=== PATIENT | male | born 1985 | race Caucasian/White ===

== ENCOUNTER 2017-04-13 22:51 | Inpatient (IN) | payer SELFPAY ==
[~2017-04-13] VITALS: Ht 172.7 cm; Wt 111.1 kg
[2017-04-13] MEDS ORDERED: DIPHTH,PERTUSS(ACELL),TET TOX 0.5 ML DISP.SYRIN. VAX IM ONE (23:50)
[2017-04-13] MEDS ORDERED: MORPHINE SULFATE 4 MG/ML DISP.SYRIN. IV ONE (23:50)
--- NOTE | 2017-04-13 23:57 | PHYS DOC ---
Past Medical History Past Medical History: No Pertinent History Past Surgical History: Other Additional Past Surgical Histo: L HAND Alcohol Use: Occasionally Drug Use: None Adult General Chief Complaint Chief Complaint: WOUND CHECK HPI HPI Patient is a 31 year old male presents emergency department stating that he has been area his right foot that is red swollen and very tender to touch. He also has an area that appears to be a half a dollar size that is black. No drainage or discharge coming from the site. Patient has good sensation to the toes. He does have swelling in the foot up to the ankle. Sensation is unsure when his last tetanus immunization occurred. Review of Systems Review of Systems Constitutional: Denies fever or chills [] Eyes: Denies change in visual acuity, redness, or eye pain [] HENT: Denies nasal congestion or sore throat [] Respiratory: Denies cough or shortness of breath [] Cardiovascular: No additional information not addressed in HPI [] GI: Denies abdominal pain, nausea, vomiting, bloody stools or diarrhea [] : Denies dysuria or hematuria [] Musculoskeletal: Denies back pain or joint pain [] Integument: Denies rash or skin lesions. Swelling, tenderness to the right foot Neurologic: Denies headache, focal weakness or sensory changes [] Endocrine: Denies polyuria or polydipsia [] Current Medications Current Medications Current Medications Medications (Trade) Dose Ordered Sig/Sara Start Time Stop Time Status Last Admin Dose Admin Diphtheria/ Tetanus/Acell Pertussis (Boostrix) 0.5 ml ONCE ONCE 04/13/17 23:50 04/13/17 23:51 DC Morphine Sulfate 4 mg 1X ONCE 04/13/17 23:50 04/13/17 23:51 DC Allergies Allergies Allergies Coded Allergies Type Severity Reaction Last Updated Verified codeine Allergy Intermediate Swelling 04/13/17 Yes Physical Exam Physical Exam Constitutional: Well developed, well nourished, no acute distress, non-toxic appearance. [] HENT: Normocephalic, atraumatic, bilateral external ears normal, oropharynx moist, no oral exudates, nose normal. [] Eyes: PERRLA, EOMI, conjunctiva normal, no discharge. [] Neck: Normal range of motion, no tenderness, supple, no stridor. [] Cardiovascular:Heart rate regular rhythm, no murmur [] Lungs & Thorax: Bilateral breath sounds clear to auscultation [] Skin: Warm, dry, no erythema, no rash. Patient with redness, swelling to the right foot with half dollar size black area. No drainage or discharge noted. Swelling and redness noted to the ankle Back: No tenderness Extremities: No tenderness, no cyanosis, no clubbing, ROM intact, no edema. [] Neurologic: Alert and oriented X 3, normal motor function, normal sensory function, no focal deficits noted. [] Psychologic: Affect normal, judgement normal, mood normal. [] Current Patient Data Vital Signs Vital Signs Date Time Temp Pulse Resp B/P (MAP) Pulse Ox O2 Delivery O2 Flow Rate FiO2 04/13/17 23:30 98.3 121 20 96 Room Air 98.3 EKG EKG [] Radiology/Procedures Radiology/Procedures [] Course & Med Decision Making Course & Med Decision Making Pertinent Labs and Imaging studies reviewed. (See chart for details) Patient will be admitted into the hospital for cellulitis in the right lower foot. Spoke with Dr. Pinto of agrees with admission. Patient be placed on clindamycin. Patient will be nothing by mouth after midnight for surgery consult. Patient will be updated with a tetanus immunization here in the emergency department. He'll be provided with pain medication. Pending at this time. Patient is aware of admission as an observation status and agrees with plan of treatment. [] Dragon Disclaimer Dragon Disclaimer This electronic medical record was generated, in whole or in part, using a voice recognition dictation system. Departure Departure Impression: Primary Impression: Cellulitis of right foot Disposition: ADMITTED INPATIENT Admitting Physician: Ama Emmanuel Condition: STABLE Referrals: NO PCP (PCP) TAWANDA SCOTT [employer]ICER April 13, 2017 23:57
[2017-04-14] VITALS (7 sets, daily range): BP systolic 98–134; BP diastolic 54–80
[2017-04-14 00:26] LABS: BASO # 0.1 x10^3/uL (0.0-0.2); BASO % 0 % (0-3); EOS % 1 % (0-3); HEMATOCRIT 42.6 % (39.0-53.0); LYMPH # 1.6 x10^3/uL (1.0-4.8); LYMPH % 6 % (24-48); MEAN CORPUSCULAR HEMOGLOBIN 29 pg (25-35); MEAN CORPUSCULAR HGB CONC 33 g/dL (31-37); MEAN CORPUSCULAR VOLUME 87 fL (79-100); MONO % 9 % (0-9); NEUT % 85 % (31-73); PLATELET COUNT 276 x10^3/uL (140-400); RED BLOOD COUNT 4.91 x10^6/uL (4.30-5.70); RED CELL DISTRIBUTION WIDTH 14.4 % (11.5-14.5); WHITE BLOOD COUNT 27.1 x10^3/uL (4.0-11.0)
[2017-04-14 00:37] LABS: CALCIUM 8.8 mg/dL (8.5-10.1); GFR 86.6; POTASSIUM 3.6 mmol/L (3.5-5.1)
[2017-04-14 00:42] LABS: ALBUMIN 3.2 g/dL (3.4-5.0); ALBUMIN/GLOBULIN RATIO 0.8 (1.0-1.7); TOTAL BILIRUBIN 0.4 mg/dL (0.2-1.0); TOTAL PROTEIN 7.1 g/dL (6.4-8.2)
[2017-04-14 00:50] LABS: % EOS 1 % (0-5); PLT ESTIMATE ADEQUATE (ADEQUATE); TOXIC GRANULATION SLIGHT
[2017-04-14 04:50] LABS: BARBITURATES NEG (NEG); BENZODIAZEPINES NEG (NEG); CANNABINOIDS NEG (NEG); COCAINE NEG (NEG); METHADONE NEG (NEG); OPIATES POS (NEG); PHENCYCLIDINE NEG (NEG)
[2017-04-14] MEDS: oxyCODONE/APAP 5/325 1 TAB TABLET PO PRN ×3 (08:09→20:31)
[2017-04-14] MEDS: NICOTINE 21MG PATCH. TD PRN (08:09)
[2017-04-14] MEDS ORDERED: CLINDAMYCIN 900MG PREMIX 50 ML IV ONE (08:45)
--- NOTE | 2017-04-14 08:59 | PDOC1 ---
History and Physical Date of Admission Date of Admission DATE: 04/14/17 TIME: 08:48 Identification/Chief Complaint Chief Complaint foot pain, skin lesion Problems: Source Source: Chart review, Patient History of Present Illness History of Present Illness right foot pain worsening over two days, he had some abrasion on that area of the foot for some time, and has some area of the contralateral foot. Patient came to the ER when the pain was unbearable. and he felt he could not walk. 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, had had recent URI symptoms and has taken sudafed, he reports no meth use Past Medical History Cardiovascular: No pertinent hx Pulmonary: No pertinent hx GI: No pertinent hx Heme/Onc: No pertinent hx Hepatobiliary: No pertinent hx Psych: No pertinent hx Rheumatologic: No pertinent hx Infectious disease: No pertinent hx ENT: No pertinent hx Renal/: No pertinent hx Endocrine: No pertinent hx Dermatology: No pertinent hx Past Surgical History Past Surgical History: No pertinent history Social History Smoke: 1 pack per day ALCOHOL: none Drugs: None (no METH, ) Current Medications Current Medications Current Medications Diphtheria/ Tetanus/Acell Pertussis (Boostrix) 0.5 ml ONCE ONCE VAX IM ; Start 04/13/17 at 23:50; Stop 04/13/17 at 23:51; Status DC Morphine Sulfate 4 mg 1X ONCE IV Last administered on 04/14/17 01:42; Start at 23:50; Stop 04/13/17 at 23:51; Status DC Nicotine (Nicoderm Cq 21mg) 1 patch PRN DAILY PRN TD SMOKING CESSATION Last administered on 04/14/17 08:09; Start 04/14/17 at 02:00 Oxycodone/ Acetaminophen (Percocet 5/325) 1 tab PRN Q6HRS PRN PO PAIN Last administered on 04/14/17 08:09; Start 04/14/17 at 02:00 Allergies Allergies: Coded Allergies: codeine (Verified Allergy, Intermediate, Swelling, 04/13/17) ROS General: No: Chills, Night Sweats, Fatigue, Malaise, Appetite, Other PSYCHOLOGICAL ROS: No: Anxiety, Behavioral Disorder, Concentration difficultie , Decreased libido, Depression, Disorientation, Hallucinations, Hostility, Irritablity, Memory difficulties, Mood Swings, Obsessive thoughts, Physical abuse, Sexual abuse, Sleep disturbances, Suicidal ideation, Other Eyes: No Blurry vision, No Decreased vision, No Double vision, No Dry eyes, No Excessive tearing, No Eye Pain, No Itchy Eyes, No Loss of vision, No Photophobia , No Scotomata, No Uses contacts, No Uses glasses, No Other HEENT: No: Heacaches, Visual Changes, Hearing change, Nasal congestion, Nasal discharge, Oral lesions, Sinus pain, Sore Throat, Epistaxis, Sneezing, Snoring, Tinnitus, Vertigo, Vocal changes, Other Respiratory: No: Cough, Hemoptysis, Orthopnea, Pleuritic Pain, Shortness of breath, SOB with excertion, Sputum Changes, Stridor, Tachypnea, Wheezing, Other Cardiovascular: No Chest Pain, No Palpitations, No Orthopnea, No Paroxysmal Noc. Dyspnea, No Edema, No Lt Headedness, No Other Gastrointestinal: No Nausea, No Vomiting, No Abdominal Pain, No Diarrhea, No Constipation, No Melena, No Hematochezia, No Other Genitourinary: No Dysuria, No Frequency, No Incontinence, No Hematuria, No Retention, No Discharge, No Urgency, No Pain, No Flank Pain, No Other, No , No , No , No , No , No , No Musculoskeletal: Yes Pain In: (foot), No Gait Disturbance, No Joint Pain, No Joint Stiffness, No Joint Swelling, No Muscle Pain, No Muscular Weakness, No Swelling In:, No Other Neurological: No Behavorial Changes, No Bowel/Bladder ControlChng, No Confusion , No Dizziness, No Gait Disturbance, No Headaches, No Impaired Coord/balance, No Memory Loss, No Numbness/Tingling, No Seizures, No Speech Problems, No Tremors, No Visual Changes, No Weakness, No Other Skin: Yes Dry Skin, Yes Rash, Yes Other (scale on same area of contralateral foot), No Eczema, No Hair Changes, No Lumps, No Mole Changes, No Mottling, No Nail Changes, No Pruritus, No Skin Lesion Changes, No Acne Physical Exam General: Alert, Oriented X3, Cooperative, No acute distress HEENT: Atraumatic, PERRLA Lungs: Clear to auscultation, Normal air movement Abdomen: Normal bowel sounds, Soft, No tenderness Rectal Exam: not examined Extremities: No clubbing, No cyanosis, Normal pulses Skin: No rashes, No breakdown, Other Neuro: Normal speech, Normal tone, Sensation intact Psych/Mental Status: Mood NL Vitals Vitals Vital Signs Date Time Temp Pulse Resp B/P (MAP) Pulse Ox O2 Delivery O2 Flow Rate FiO2 04/14/17 08:09 16 Room Air 04/14/17 07:00 97.7 96 102/64 (77) 100 97.7 Labs Labs Laboratory Tests Test 04/14/17 00:18 04/14/17 03:10 White Blood Count 27.1 x10^3/uL (4.0-11.0) Red Blood Count 4.91 x10^6/uL (4.30-5.70) Hemoglobin 14.0 g/dL (13.0-17.5) Hematocrit 42.6 % (39.0-53.0) Mean Corpuscular Volume 87 fL (79-100) Mean Corpuscular Hemoglobin 29 pg (25-35) Mean Corpuscular Hemoglobin Concent 33 g/dL (31-37) Red Cell Distribution Width 14.4 % (11.5-14.5) Platelet Count 276 x10^3/uL (140-400) Neutrophils (%) (Auto) 85 % (31-73) Lymphocytes (%) (Auto) 6 % (24-48) Monocytes (%) (Auto) 9 % (0-9) Eosinophils (%) (Auto) 1 % (0-3) Basophils (%) (Auto) 0 % (0-3) Neutrophils # (Auto) 22.9 x10^3uL (1.8-7.7) Lymphocytes # (Auto) 1.6 x10^3/uL (1.0-4.8) Monocytes # (Auto) 2.4 x10^3/uL (0.0-1.1) Eosinophils # (Auto) 0.2 x10^3/uL (0.0-0.7) Basophils # (Auto) 0.1 x10^3/uL (0.0-0.2) Segmented Neutrophils % 82 % (35-66) Lymphocytes % 9 % (24-48) Monocytes % 8 % (0-10) Eosinophils % 1 % (0-5) Toxic Granulation Slight Platelet Estimate Adequate (ADEQUATE) Sodium Level 134 mmol/L (136-145) Potassium Level 3.6 mmol/L (3.5-5.1) Chloride Level 100 mmol/L (98-107) Carbon Dioxide Level 23 mmol/L (21-32) Anion Gap 11 (6-14) Blood Urea Nitrogen 7 mg/dL (8-26) Creatinine 1.0 mg/dL (0.7-1.3) Estimated GFR (Cockcroft-Gault) 86.6 BUN/Creatinine Ratio 7 (6-20) Glucose Level 171 mg/dL (70-99) Calcium Level 8.8 mg/dL (8.5-10.1) Total Bilirubin 0.4 mg/dL (0.2-1.0) Aspartate Amino Transf (AST/SGOT) 23 U/L (15-37) Alanine Aminotransferase (ALT/SGPT) 48 U/L (16-63) Alkaline Phosphatase 87 U/L (46-116) Total Protein 7.1 g/dL (6.4-8.2) Albumin 3.2 g/dL (3.4-5.0) Albumin/Globulin Ratio 0.8 (1.0-1.7) Urine Opiates Screen Pos (NEG) Urine Methadone Screen Neg (NEG) Urine Barbiturates Neg (NEG) Urine Phencyclidine Screen Neg (NEG) Urine Amphetamine/Methamphetamine Pos (NEG) Urine Benzodiazepines Screen Neg (NEG) Urine Cocaine Screen Neg (NEG) Urine Cannabinoids Screen Neg (NEG) Urine Ethyl Alcohol Neg (NEG) Laboratory Tests Test 04/14/17 00:18 04/14/17 03:10 White Blood Count 27.1 x10^3/uL (4.0-11.0) Red Blood Count 4.91 x10^6/uL (4.30-5.70) Hemoglobin 14.0 g/dL (13.0-17.5) Hematocrit 42.6 % (39.0-53.0) Mean Corpuscular Volume 87 fL (79-100) Mean Corpuscular Hemoglobin 29 pg (25-35) Mean Corpuscular Hemoglobin Concent 33 g/dL (31-37) Red Cell Distribution Width 14.4 % (11.5-14.5) Platelet Count 276 x10^3/uL (140-400) Neutrophils (%) (Auto) 85 % (31-73) Lymphocytes (%) (Auto) 6 % (24-48) Monocytes (%) (Auto) 9 % (0-9) Eosinophils (%) (Auto) 1 % (0-3) Basophils (%) (Auto) 0 % (0-3) Neutrophils # (Auto) 22.9 x10^3uL (1.8-7.7) Lymphocytes # (Auto) 1.6 x10^3/uL (1.0-4.8) Monocytes # (Auto) 2.4 x10^3/uL (0.0-1.1) Eosinophils # (Auto) 0.2 x10^3/uL (0.0-0.7) Basophils # (Auto) 0.1 x10^3/uL (0.0-0.2) Segmented Neutrophils % 82 % (35-66) Lymphocytes % 9 % (24-48) Monocytes % 8 % (0-10) Eosinophils % 1 % (0-5) Toxic Granulation Slight Platelet Estimate Adequate (ADEQUATE) Sodium Level 134 mmol/L (136-145) Potassium Level 3.6 mmol/L (3.5-5.1) Chloride Level 100 mmol/L (98-107) Carbon Dioxide Level 23 mmol/L (21-32) Anion Gap 11 (6-14) Blood Urea Nitrogen 7 mg/dL (8-26) Creatinine 1.0 mg/dL (0.7-1.3) Estimated GFR (Cockcroft-Gault) 86.6 BUN/Creatinine Ratio 7 (6-20) Glucose Level 171 mg/dL (70-99) Calcium Level 8.8 mg/dL (8.5-10.1) Total Bilirubin 0.4 mg/dL (0.2-1.0) Aspartate Amino Transf (AST/SGOT) 23 U/L (15-37) Alanine Aminotransferase (ALT/SGPT) 48 U/L (16-63) Alkaline Phosphatase 87 U/L (46-116) Total Protein 7.1 g/dL (6.4-8.2) Albumin 3.2 g/dL (3.4-5.0) Albumin/Globulin Ratio 0.8 (1.0-1.7) Urine Opiates Screen Pos (NEG) Urine Methadone Screen Neg (NEG) Urine Barbiturates Neg (NEG) Urine Phencyclidine Screen Neg (NEG) Urine Amphetamine/Methamphetamine Pos (NEG) Urine Benzodiazepines Screen Neg (NEG) Urine Cocaine Screen Neg (NEG) Urine Cannabinoids Screen Neg (NEG) Urine Ethyl Alcohol Neg (NEG) VTE Prophylaxis Ordered VTE Prophylaxis Devices: No VTE Pharmacological Prophylaxi: Yes Assessment/Plan Assessment/Plan right foot cellulits with wound, bullous area withpossible underlying eschar, nearly black sepsis w/ Leukocytosis and tachycardia, bolus NS now, obesity tobaccoism IV clinda, consult ortho, would likely benefit from I+D KIMBERLEY GONSALES MD Apr 14, 2017 08:59
[2017-04-14] MEDS ORDERED: IV NORMAL SALINE 1000ML BAG 1,000 ML IV ONE ×2 (09:00)
[2017-04-14] MEDS ORDERED: NICOTINE POLACRILEX 2MG GUM PACKAGE of 12. BC PRN (09:00)
[2017-04-14] MEDS: CLINDAMYCIN 900MG PREMIX 50 ML IV SCH ×2 (14:25→20:31)
[2017-04-15 03:00] VITALS: BP 109/65
[2017-04-15] MEDS: CLINDAMYCIN 900MG PREMIX 50 ML IV SCH ×3 (05:32→20:32)
[2017-04-15 07:00] VITALS: BP 116/73
[2017-04-15 09:23] LABS: BASO # 0.1 x10^3/uL (0.0-0.2); BASO % 0 % (0-3); EOS % 3 % (0-3); HEMATOCRIT 40.3 % (39.0-53.0); HEMOGLOBIN 13.2 g/dL (13.0-17.5); LYMPH # 1.8 x10^3/uL (1.0-4.8); LYMPH % 13 % (24-48); MEAN CORPUSCULAR HEMOGLOBIN 29 pg (25-35); MEAN CORPUSCULAR HGB CONC 33 g/dL (31-37); MEAN CORPUSCULAR VOLUME 88 fL (79-100); MONO % 11 % (0-9); NEUT % 73 % (31-73); PLATELET COUNT 257 x10^3/uL (140-400); WHITE BLOOD COUNT 13.4 x10^3/uL (4.0-11.0)
[2017-04-15 09:38] LABS: ALBUMIN 2.6 g/dL (3.4-5.0); ALBUMIN/GLOBULIN RATIO 0.6 (1.0-1.7); CALCIUM 8.6 mg/dL (8.5-10.1); CREATININE 1.2 mg/dL (0.7-1.3); GFR 70.2; POTASSIUM 4.3 mmol/L (3.5-5.1); TOTAL BILIRUBIN 0.4 mg/dL (0.2-1.0); TOTAL PROTEIN 6.9 g/dL (6.4-8.2)
[2017-04-15 11:00] VITALS: BP 117/78
[2017-04-15] MEDS: oxyCODONE/APAP 5/325 1 TAB TABLET PO PRN ×2 (12:52→18:42)
[2017-04-15] MEDS: NICOTINE 21MG PATCH. TD PRN (12:52)
[2017-04-15 15:00] VITALS: BP 107/75
--- NOTE | 2017-04-15 17:00 | RAD ---
MR of the right foot without contrast HISTORY: Right dorsal foot pain and swelling. Open wound resembling a spider bite for 5 days, located at the dorsal aspect of the central mid foot TECHNIQUE: Routine multiplanar sequences are obtained through the foot, centered at the mid foot. FINDINGS: Diffuse soft tissue edema and swelling, particularly involving the dorsum of the foot and extending into the partially visualized toes. This also extends posteriorly to the ankle. No evidence of an organized or drainable fluid collection or abscess. No evidence of a bone lesion or an acute fracture. No aggressive bone destruction. No significant bone marrow edema. No evidence of periosteal reaction. The visualized tendons are intact. No significant tendon sheath fluid. IMPRESSION: 1. Soft tissue swelling along the dorsum of the foot compatible with cellulitis or soft tissue infection. No evidence of an organized abscess. 2. No evidence of acute osteomyelitis. Electronically signed by: Maximo Lee MD (04/15/2017 4:57 PM)
--- NOTE | 2017-04-15 17:33 | PDOC ---
PROGRESS NOTES Chief Complaint Chief Complaint Severe right foot cellulits with wound bullous area withpossible underlying eschar nearly black Sepsis w/ Leukocytosis and tachycardia obesity tobaccoism History of Present Illness History of Present Illness Pt resting with NAD DW RN DW case mgmt Vitals Vitals Vital Signs Date Time Temp Pulse Resp B/P (MAP) Pulse Ox O2 Delivery O2 Flow Rate FiO2 04/15/17 15:00 98.6 100 20 107/75 (86) 96 Room Air 98.6 Physical Exam General: Alert, Oriented X3, Cooperative, No acute distress Heart: Regular rate, Normal S1, Normal S2 Lungs: Clear Abdomen: Normal bowel sounds, Soft, No tenderness Extremities: No clubbing, No cyanosis, Normal pulses Skin: No rashes, No breakdown, Other Labs LABS Laboratory Tests Test 04/15/17 08:50 White Blood Count 13.4 x10^3/uL (4.0-11.0) Red Blood Count 4.60 x10^6/uL (4.30-5.70) Hemoglobin 13.2 g/dL (13.0-17.5) Hematocrit 40.3 % (39.0-53.0) Mean Corpuscular Volume 88 fL (79-100) Mean Corpuscular Hemoglobin 29 pg (25-35) Mean Corpuscular Hemoglobin Concent 33 g/dL (31-37) Red Cell Distribution Width 15.0 % (11.5-14.5) Platelet Count 257 x10^3/uL (140-400) Neutrophils (%) (Auto) 73 % (31-73) Lymphocytes (%) (Auto) 13 % (24-48) Monocytes (%) (Auto) 11 % (0-9) Eosinophils (%) (Auto) 3 % (0-3) Basophils (%) (Auto) 0 % (0-3) Neutrophils # (Auto) 9.8 x10^3uL (1.8-7.7) Lymphocytes # (Auto) 1.8 x10^3/uL (1.0-4.8) Monocytes # (Auto) 1.4 x10^3/uL (0.0-1.1) Eosinophils # (Auto) 0.4 x10^3/uL (0.0-0.7) Basophils # (Auto) 0.1 x10^3/uL (0.0-0.2) Sodium Level 141 mmol/L (136-145) Potassium Level 4.3 mmol/L (3.5-5.1) Chloride Level 105 mmol/L (98-107) Carbon Dioxide Level 28 mmol/L (21-32) Anion Gap 8 (6-14) Blood Urea Nitrogen 11 mg/dL (8-26) Creatinine 1.2 mg/dL (0.7-1.3) Estimated GFR (Cockcroft-Gault) 70.2 BUN/Creatinine Ratio 9 (6-20) Glucose Level 98 mg/dL (70-99) Calcium Level 8.6 mg/dL (8.5-10.1) Total Bilirubin 0.4 mg/dL (0.2-1.0) Aspartate Amino Transf (AST/SGOT) 19 U/L (15-37) Alanine Aminotransferase (ALT/SGPT) 38 U/L (16-63) Alkaline Phosphatase 77 U/L (46-116) Total Protein 6.9 g/dL (6.4-8.2) Albumin 2.6 g/dL (3.4-5.0) Albumin/Globulin Ratio 0.6 (1.0-1.7) Review of Systems Review of Systems co pain co weakness Assessment and Plan Assessmemt and Plan Severe right foot cellulits with wound bullous area withpossible underlying eschar nearly black Sepsis w/ Leukocytosis and tachycardia obesity tobaccoism Plan IV antibx wound care Ortho and gen surgery consult PTOT Home meds Problems: Comment Review of Relevant I have reviewed the following items pepito (where applicable) has been applied. Labs Laboratory Tests Test 04/14/17 00:18 04/14/17 01:20 04/14/17 03:10 04/15/17 08:50 White Blood Count 27.1 x10^3/uL (4.0-11.0) 13.4 x10^3/uL (4.0-11.0) Red Blood Count 4.91 x10^6/uL (4.30-5.70) 4.60 x10^6/uL (4.30-5.70) Hemoglobin 14.0 g/dL (13.0-17.5) 13.2 g/dL (13.0-17.5) Hematocrit 42.6 % (39.0-53.0) 40.3 % (39.0-53.0) Mean Corpuscular Volume 87 fL (79-100) 88 fL (79-100) Mean Corpuscular Hemoglobin 29 pg (25-35) 29 pg (25-35) Mean Corpuscular Hemoglobin Concent 33 g/dL (31-37) 33 g/dL (31-37) Red Cell Distribution Width 14.4 % (11.5-14.5) 15.0 % (11.5-14.5) Platelet Count 276 x10^3/uL (140-400) 257 x10^3/uL (140-400) Neutrophils (%) (Auto) 85 % (31-73) 73 % (31-73) Lymphocytes (%) (Auto) 6 % (24-48) 13 % (24-48) Monocytes (%) (Auto) 9 % (0-9) 11 % (0-9) Eosinophils (%) (Auto) 1 % (0-3) 3 % (0-3) Basophils (%) (Auto) 0 % (0-3) 0 % (0-3) Neutrophils # (Auto) 22.9 x10^3uL (1.8-7.7) 9.8 x10^3uL (1.8-7.7) Lymphocytes # (Auto) 1.6 x10^3/uL (1.0-4.8) 1.8 x10^3/uL (1.0-4.8) Monocytes # (Auto) 2.4 x10^3/uL (0.0-1.1) 1.4 x10^3/uL (0.0-1.1) Eosinophils # (Auto) 0.2 x10^3/uL (0.0-0.7) 0.4 x10^3/uL (0.0-0.7) Basophils # (Auto) 0.1 x10^3/uL (0.0-0.2) 0.1 x10^3/uL (0.0-0.2) Segmented Neutrophils % 82 % (35-66) Lymphocytes % 9 % (24-48) Monocytes % 8 % (0-10) Eosinophils % 1 % (0-5) Toxic Granulation Slight Platelet Estimate Adequate (ADEQUATE) Sodium Level 134 mmol/L (136-145) 141 mmol/L (136-145) Potassium Level 3.6 mmol/L (3.5-5.1) 4.3 mmol/L (3.5-5.1) Chloride Level 100 mmol/L (98-107) 105 mmol/L (98-107) Carbon Dioxide Level 23 mmol/L (21-32) 28 mmol/L (21-32) Anion Gap 11 (6-14) 8 (6-14) Blood Urea Nitrogen 7 mg/dL (8-26) 11 mg/dL (8-26) Creatinine 1.0 mg/dL (0.7-1.3) 1.2 mg/dL (0.7-1.3) Estimated GFR (Cockcroft-Gault) 86.6 70.2 BUN/Creatinine Ratio 7 (6-20) 9 (6-20) Glucose Level 171 mg/dL (70-99) 98 mg/dL (70-99) Calcium Level 8.8 mg/dL (8.5-10.1) 8.6 mg/dL (8.5-10.1) Total Bilirubin 0.4 mg/dL (0.2-1.0) 0.4 mg/dL (0.2-1.0) Aspartate Amino Transf (AST/SGOT) 23 U/L (15-37) 19 U/L (15-37) Alanine Aminotransferase (ALT/SGPT) 48 U/L (16-63) 38 U/L (16-63) Alkaline Phosphatase 87 U/L (46-116) 77 U/L (46-116) Total Protein 7.1 g/dL (6.4-8.2) 6.9 g/dL (6.4-8.2) Albumin 3.2 g/dL (3.4-5.0) 2.6 g/dL (3.4-5.0) Albumin/Globulin Ratio 0.8 (1.0-1.7) 0.6 (1.0-1.7) Nasal Screen MRSA (PCR) Negative (Negative) Urine Opiates Screen Pos (NEG) Urine Methadone Screen Neg (NEG) Urine Barbiturates Neg (NEG) Urine Phencyclidine Screen Neg (NEG) Urine Amphetamine/Methamphetamine Pos (NEG) Urine Benzodiazepines Screen Neg (NEG) Urine Cocaine Screen Neg (NEG) Urine Cannabinoids Screen Neg (NEG) Urine Ethyl Alcohol Neg (NEG) Laboratory Tests Test 04/15/17 08:50 White Blood Count 13.4 x10^3/uL (4.0-11.0) Red Blood Count 4.60 x10^6/uL (4.30-5.70) Hemoglobin 13.2 g/dL (13.0-17.5) Hematocrit 40.3 % (39.0-53.0) Mean Corpuscular Volume 88 fL (79-100) Mean Corpuscular Hemoglobin 29 pg (25-35) Mean Corpuscular Hemoglobin Concent 33 g/dL (31-37) Red Cell Distribution Width 15.0 % (11.5-14.5) Platelet Count 257 x10^3/uL (140-400) Neutrophils (%) (Auto) 73 % (31-73) Lymphocytes (%) (Auto) 13 % (24-48) Monocytes (%) (Auto) 11 % (0-9) Eosinophils (%) (Auto) 3 % (0-3) Basophils (%) (Auto) 0 % (0-3) Neutrophils # (Auto) 9.8 x10^3uL (1.8-7.7) Lymphocytes # (Auto) 1.8 x10^3/uL (1.0-4.8) Monocytes # (Auto) 1.4 x10^3/uL (0.0-1.1) Eosinophils # (Auto) 0.4 x10^3/uL (0.0-0.7) Basophils # (Auto) 0.1 x10^3/uL (0.0-0.2) Sodium Level 141 mmol/L (136-145) Potassium Level 4.3 mmol/L (3.5-5.1) Chloride Level 105 mmol/L (98-107) Carbon Dioxide Level 28 mmol/L (21-32) Anion Gap 8 (6-14) Blood Urea Nitrogen 11 mg/dL (8-26) Creatinine 1.2 mg/dL (0.7-1.3) Estimated GFR (Cockcroft-Gault) 70.2 BUN/Creatinine Ratio 9 (6-20) Glucose Level 98 mg/dL (70-99) Calcium Level 8.6 mg/dL (8.5-10.1) Total Bilirubin 0.4 mg/dL (0.2-1.0) Aspartate Amino Transf (AST/SGOT) 19 U/L (15-37) Alanine Aminotransferase (ALT/SGPT) 38 U/L (16-63) Alkaline Phosphatase 77 U/L (46-116) Total Protein 6.9 g/dL (6.4-8.2) Albumin 2.6 g/dL (3.4-5.0) Albumin/Globulin Ratio 0.6 (1.0-1.7) Microbiology 04/14/17 Blood Culture - Preliminary, Resulted NO GROWTH AFTER 1 DAY Medications Current Medications Diphtheria/ Tetanus/Acell Pertussis (Boostrix) 0.5 ml ONCE ONCE VAX IM ; Start 04/13/17 at 23:50; Stop 04/13/17 at 23:51; Status DC Morphine Sulfate 4 mg 1X ONCE IV Last administered on 04/14/17 01:42; Start at 23:50; Stop 04/13/17 at 23:51; Status DC Nicotine (Nicoderm Cq 21mg) 1 patch PRN DAILY PRN TD SMOKING CESSATION Last administered on 04/15/17 12:52; Start 04/14/17 at 02:00 Oxycodone/ Acetaminophen (Percocet 5/325) 1 tab PRN Q6HRS PRN PO PAIN Last administered on 04/15/17 12:52; Start 04/14/17 at 02:00 Clindamycin Phosphate 50 ml @ 100 mls/hr Q8HRS IV Last administered on 16:35; Start 04/14/17 at 14:00 Clindamycin Phosphate 50 ml @ 100 mls/hr 1X ONCE IV Last administered on 09:31; Start 04/14/17 at 08:45; Stop 04/14/17 at 09:14; Status DC Nicotine Polacrilex (Nicorette Gum) 1 each PRN Q1HR PRN BC SMOKING CESSATION; Start 04/14/17 at 09:00 Morphine Sulfate 4 mg PRN Q2HR PRN IV PAIN; Start 04/14/17 at 09:00 Sodium Chloride 1,000 ml @ 125 mls/hr 1X ONCE IV Last administered on 11:58; Start 04/14/17 at 09:00; Stop 04/14/17 at 16:59; Status DC Sodium Chloride 1,000 ml @ 1,000 mls/hr 1X ONCE IV Last administered on t 09:08; Start 04/14/17 at 09:00; Stop 04/14/17 at 09:59; Status DC Vitals/I & O Vital Sign - Last 24 Hours 04/14/17 04/14/17 04/14/17 04/14/17 19:00 19:56 20:31 21:31 Temp 97.6 97.6 Pulse 113 Resp 18 20 20 B/P (MAP) 114/74 (87) Pulse Ox 99 99 98 O2 Delivery Room Air Room Air Room Air 04/14/17 04/15/17 04/15/17 04/15/17 23:00 03:00 07:00 08:15 Temp 98.3 97.6 98.1 98.3 97.6 98.1 Pulse 121 95 117 Resp 18 24 20 B/P (MAP) 120/65 (83) 109/65 (80) 116/73 (87) Pulse Ox 98 100 99 O2 Delivery Room Air Room Air Room Air Room Air 04/15/17 04/15/17 04/15/17 04/15/17 11:00 12:52 13:55 15:00 Temp 97.5 98.6 97.5 98.6 Pulse 109 100 Resp 20 20 B/P (MAP) 117/78 (91) 107/75 (86) Pulse Ox 97 96 O2 Delivery Room Air Room Air Room Air Room Air Intake and Output 04/14/17 04/14/17 04/15/17 15:00 23:00 07:00 Intake Total 1100 ml 360 ml 0 ml Output Total 1435 ml 1550 ml Balance 1100 ml -1075 ml -1550 ml ELIZABETH NICOLAS III DO Apr 15, 2017 17:33
[2017-04-15 19:00] VITALS: BP 120/77
[2017-04-15] MEDS: MORPHINE SULFATE 4 MG/ML DISP.SYRIN. IV PRN (21:54)
[2017-04-15 23:00] VITALS: BP 120/76
--- NOTE | 2017-04-16 02:06 | CONS ---
DATE OF CONSULTATION: 04/15/2017 ORTHOPEDIC CONSULTATION REQUESTING PHYSICIAN: Dr. Ama mEmanuel. REASON FOR CONSULTATION: Right foot blister and infection. HISTORY OF PRESENT ILLNESS: The patient is a 31-year-old male who states that he had about a week history of increasing discomfort to his top of his right foot. He says he is unaware of any specific trauma to the area. It became progressively tender, swollen and then red. He developed a small area that seem to bubble up on the top of the foot and then got to be a bigger area of about a half dollar sized was black with surrounding redness in the area. The blister did not break or discharge. He has really had no fever or chills. The area might be a spider bite, but he is unaware of any specific trauma. He does have some swelling in the foot, tenderness around the area. There is some stiffness and pain with movement of the foot as well. PAST MEDICAL HISTORY: He has had surgery on his left hand before. ALLERGIES: CODEINE. MEDICATIONS: List is reviewed. FAMILY HISTORY: He denies any significant family history. SOCIAL HISTORY: He is a 1 pack per day smoker. Denies alcohol use. No use of nonprescription drugs. REVIEW OF SYSTEMS: He was given tetanus in the Emergency Department. Denies any fever, chills, focal weakness, numbness, tingling, visual changes any respiratory symptoms, cough or cold. No nausea, vomiting, diarrhea, really pain has isolated to the foot without any radiating pain, no difficulties with his gait other than pain in the foot, skin changes only with some scaly skin on the opposite foot. PHYSICAL EXAMINATION: GENERAL: He is afebrile. Vital signs are stable, alert and oriented x 3, cooperative, in no acute distress. EXTREMITIES: Examination of the lower extremities reveals about a 2 cm diameter round the area on the dorsum of the right foot that has appearance of a blood-filled blister surrounding redness and swelling of the entire foot. He has mild restriction on full range of motion of his ankle with no instability on the right side, full range of motion on the left. No evidence of ankle joint effusion. He can wiggle his toes, but does have tenderness with movement in the foot, normal examination of the contralateral foot and ankle. Bilateral hips and knees with overall intact motor function, distal pulses, sensation, reflexes, skin in both lower extremities throughout. IMPRESSION: Right foot cellulitis with blister of unknown, presumably atraumatic origin. TREATMENT PLAN: After verbal consent was obtained, I sterilely prepped the area of his right foot and unroofed the area of the blister, fluid inside appeared to be serosanguineous in nature and there was no evidence of deep tracking below the dermis. He certainly does have surrounding cellulitis around the area. The area was then dressed with Xeroform gauze, sterile dressings and an Merritt wrap. I told him that based on the appearance, I think really this appears to be just a superficial blister with some superficial irritation of the skin that would continue to just probably respond to antibiotics. Given the unusual onset of this and possibility of some other deep tissue involvement relating to this, I obtained an MRI to see whether if this could be possibly masking an abscess below the skin surface and require further surgical debridement ; however, the MRI was obtained later today after my consultation and indeed shows just cellulitis and no evidence of soft tissue abscess or any bony changes of deep infection or osteomyelitis. I therefore recommend ongoing nonoperative treatment with antibiotics and a superficial wound care of the foot. From my standpoint, he can weightbear on the foot. I think would be limited in terms of due to the ongoing tenderness and swelling. DAAM DOMINGO MD DR: BLADIMIR/crista JOB#: [id number] / [id number]
[2017-04-16 03:00] VITALS: BP 112/67
[2017-04-16] MEDS: oxyCODONE/APAP 5/325 1 TAB TABLET PO PRN ×3 (05:33→21:38)
[2017-04-16] MEDS: CLINDAMYCIN 900MG PREMIX 50 ML IV SCH ×3 (05:34→21:38)
[2017-04-16] MEDS ORDERED: CALCIUM CARBONATE 500 MG TAB.CHEW PO PRN (05:45)
[2017-04-16 07:00] VITALS: BP 122/77
[2017-04-16 10:40] VITALS: BP 119/75
--- NOTE | 2017-04-16 12:22 | PDOC ---
PROGRESS NOTES Chief Complaint Chief Complaint Severe right foot cellulits with wound bullous area withpossible underlying eschar nearly black Sepsis w/ Leukocytosis and tachycardia obesity tobaccoism History of Present Illness History of Present Illness Pt resting with DONI LAWSON RN DW case mgmt Examined wound Vitals Vitals Vital Signs Date Time Temp Pulse Resp B/P (MAP) Pulse Ox O2 Delivery O2 Flow Rate FiO2 04/16/17 10:40 98.0 110 18 119/75 (90) 97 Room Air 98.0 Physical Exam General: Alert, Oriented X3, Cooperative, No acute distress Heart: Regular rate, Normal S1, Normal S2 Lungs: Clear Abdomen: Normal bowel sounds, Soft, No tenderness Extremities: No clubbing, No cyanosis, Normal pulses Skin: No rashes, No breakdown, Other Review of Systems Review of Systems co pain Co hunger Assessment and Plan Assessmemt and Plan S/P Iand D Severe right foot cellulits with wound bullous area withpossible underlying eschar nearly black Sepsis w/ Leukocytosis and tachycardia obesity tobaccoism Plan Wound care PTOT IV antibx rcheck labs Home meds Narcotics Problems: Comment Review of Relevant I have reviewed the following items pepito (where applicable) has been applied. Labs Laboratory Tests Test 04/15/17 08:50 White Blood Count 13.4 x10^3/uL (4.0-11.0) Red Blood Count 4.60 x10^6/uL (4.30-5.70) Hemoglobin 13.2 g/dL (13.0-17.5) Hematocrit 40.3 % (39.0-53.0) Mean Corpuscular Volume 88 fL (79-100) Mean Corpuscular Hemoglobin 29 pg (25-35) Mean Corpuscular Hemoglobin Concent 33 g/dL (31-37) Red Cell Distribution Width 15.0 % (11.5-14.5) Platelet Count 257 x10^3/uL (140-400) Neutrophils (%) (Auto) 73 % (31-73) Lymphocytes (%) (Auto) 13 % (24-48) Monocytes (%) (Auto) 11 % (0-9) Eosinophils (%) (Auto) 3 % (0-3) Basophils (%) (Auto) 0 % (0-3) Neutrophils # (Auto) 9.8 x10^3uL (1.8-7.7) Lymphocytes # (Auto) 1.8 x10^3/uL (1.0-4.8) Monocytes # (Auto) 1.4 x10^3/uL (0.0-1.1) Eosinophils # (Auto) 0.4 x10^3/uL (0.0-0.7) Basophils # (Auto) 0.1 x10^3/uL (0.0-0.2) Sodium Level 141 mmol/L (136-145) Potassium Level 4.3 mmol/L (3.5-5.1) Chloride Level 105 mmol/L (98-107) Carbon Dioxide Level 28 mmol/L (21-32) Anion Gap 8 (6-14) Blood Urea Nitrogen 11 mg/dL (8-26) Creatinine 1.2 mg/dL (0.7-1.3) Estimated GFR (Cockcroft-Gault) 70.2 BUN/Creatinine Ratio 9 (6-20) Glucose Level 98 mg/dL (70-99) Calcium Level 8.6 mg/dL (8.5-10.1) Total Bilirubin 0.4 mg/dL (0.2-1.0) Aspartate Amino Transf (AST/SGOT) 19 U/L (15-37) Alanine Aminotransferase (ALT/SGPT) 38 U/L (16-63) Alkaline Phosphatase 77 U/L (46-116) Total Protein 6.9 g/dL (6.4-8.2) Albumin 2.6 g/dL (3.4-5.0) Albumin/Globulin Ratio 0.6 (1.0-1.7) Microbiology 04/14/17 Blood Culture - Preliminary, Resulted NO GROWTH AFTER 2 DAYS Medications Current Medications Diphtheria/ Tetanus/Acell Pertussis (Boostrix) 0.5 ml ONCE ONCE VAX IM ; Start 04/13/17 at 23:50; Stop 04/13/17 at 23:51; Status DC Morphine Sulfate 4 mg 1X ONCE IV Last administered on 04/14/17 01:42; Start at 23:50; Stop 04/13/17 at 23:51; Status DC Nicotine (Nicoderm Cq 21mg) 1 patch PRN DAILY PRN TD SMOKING CESSATION Last administered on 04/15/17 12:52; Start 04/14/17 at 02:00 Oxycodone/ Acetaminophen (Percocet 5/325) 1 tab PRN Q6HRS PRN PO PAIN Last administered on 04/16/17 05:33; Start 04/14/17 at 02:00 Clindamycin Phosphate 50 ml @ 100 mls/hr Q8HRS IV Last administered on 05:34; Start 04/14/17 at 14:00 Clindamycin Phosphate 50 ml @ 100 mls/hr 1X ONCE IV Last administered on 09:31; Start 04/14/17 at 08:45; Stop 04/14/17 at 09:14; Status DC Nicotine Polacrilex (Nicorette Gum) 1 each PRN Q1HR PRN BC SMOKING CESSATION; Start 04/14/17 at 09:00 Morphine Sulfate 4 mg PRN Q2HR PRN IV PAIN Last administered on 04/15/17 21:54 ; Start 04/14/17 at 09:00 Sodium Chloride 1,000 ml @ 125 mls/hr 1X ONCE IV Last administered on 11:58; Start 04/14/17 at 09:00; Stop 04/14/17 at 16:59; Status DC Sodium Chloride 1,000 ml @ 1,000 mls/hr 1X ONCE IV Last administered on 09:08; Start 04/14/17 at 09:00; Stop 04/14/17 at 09:59; Status DC Calcium Carbonate/ Glycine (Tums) 500 mg PRN AFTMEALHC PRN PO INDIGESTION; Start 04/16/17 at 05:45 Vitals/I & O Vital Sign - Last 24 Hours 04/15/17 04/15/17 04/15/17 04/15/17 12:52 15:00 18:42 19:00 Temp 98.6 97.9 98.6 97.9 Pulse 100 113 Resp 20 18 B/P (MAP) 107/75 (86) 120/77 (91) Pulse Ox 96 99 O2 Delivery Room Air Room Air Room Air Room Air 04/15/17 04/15/17 04/15/17 04/15/17 19:42 20:05 21:54 22:24 Resp 20 20 Pulse Ox 99 99 96 O2 Delivery Room Air Room Air Room Air 04/15/17 04/16/17 04/16/17/3/17 23:00 03:00 05:33 06:33 Temp 98.3 97.7 98.3 97.7 Pulse 106 107 Resp 18 22 20 20 B/P (MAP) 120/76 (91) 112/67 (82) Pulse Ox 96 98 98 O2 Delivery Room Air Room Air Room Air Room Air 04/16/17 04/16/17 07:00 10:40 Temp 98.1 98.0 98.1 98.0 Pulse 111 110 Resp 18 18 B/P (MAP) 122/77 (92) 119/75 (90) Pulse Ox 97 97 O2 Delivery Room Air Room Air Intake and Output 04/15/17 04/15/17 04/16/17 15:00 23:00 07:00 Intake Total 620 ml Output Total 1715 ml Balance -1715 ml 620 ml ELIZABETH NICOLAS III DO Apr 16, 2017 12:22
[2017-04-16 14:56] VITALS: BP 114/70
[2017-04-16] MEDS: NICOTINE 21MG PATCH. TD PRN (14:58)
--- NOTE | 2017-04-16 17:17 | PDOC ---
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 Vital Signs Vital Signs Date Time Temp Pulse Resp B/P (MAP) Pulse Ox O2 Delivery O2 Flow Rate FiO2 04/16/17 14:59 Room Air 04/16/17 14:56 97.8 102 16 114/70 (85) 97 97.8 Physical Exam still red around unroofed blister, ankle mildly stiff but not septic Labs Laboratory Tests Test 04/15/17 08:50 White Blood Count 13.4 x10^3/uL (4.0-11.0) Red Blood Count 4.60 x10^6/uL (4.30-5.70) Hemoglobin 13.2 g/dL (13.0-17.5) Hematocrit 40.3 % (39.0-53.0) Mean Corpuscular Volume 88 fL (79-100) Mean Corpuscular Hemoglobin 29 pg (25-35) Mean Corpuscular Hemoglobin Concent 33 g/dL (31-37) Red Cell Distribution Width 15.0 % (11.5-14.5) Platelet Count 257 x10^3/uL (140-400) Neutrophils (%) (Auto) 73 % (31-73) Lymphocytes (%) (Auto) 13 % (24-48) Monocytes (%) (Auto) 11 % (0-9) Eosinophils (%) (Auto) 3 % (0-3) Basophils (%) (Auto) 0 % (0-3) Neutrophils # (Auto) 9.8 x10^3uL (1.8-7.7) Lymphocytes # (Auto) 1.8 x10^3/uL (1.0-4.8) Monocytes # (Auto) 1.4 x10^3/uL (0.0-1.1) Eosinophils # (Auto) 0.4 x10^3/uL (0.0-0.7) Basophils # (Auto) 0.1 x10^3/uL (0.0-0.2) Sodium Level 141 mmol/L (136-145) Potassium Level 4.3 mmol/L (3.5-5.1) Chloride Level 105 mmol/L (98-107) Carbon Dioxide Level 28 mmol/L (21-32) Anion Gap 8 (6-14) Blood Urea Nitrogen 11 mg/dL (8-26) Creatinine 1.2 mg/dL (0.7-1.3) Estimated GFR (Cockcroft-Gault) 70.2 BUN/Creatinine Ratio 9 (6-20) Glucose Level 98 mg/dL (70-99) Calcium Level 8.6 mg/dL (8.5-10.1) Total Bilirubin 0.4 mg/dL (0.2-1.0) Aspartate Amino Transf (AST/SGOT) 19 U/L (15-37) Alanine Aminotransferase (ALT/SGPT) 38 U/L (16-63) Alkaline Phosphatase 77 U/L (46-116) Total Protein 6.9 g/dL (6.4-8.2) Albumin 2.6 g/dL (3.4-5.0) Albumin/Globulin Ratio 0.6 (1.0-1.7) Imaging MRI negative for abscess or osteo Assessment Assessment POD# [], S/P [] Problems: Plan Plan of Care local wound care, Antibiotics non op mgmt of foot wound (no abscess) ADAM DOMINGO MD Apr 16, 2017 17:17
[2017-04-16] MEDS: MORPHINE SULFATE 4 MG/ML DISP.SYRIN. IV PRN (18:34)
[2017-04-16 19:00] VITALS: BP 112/75
[2017-04-16 23:00] VITALS: BP 124/74
[2017-04-17] MEDS: CLINDAMYCIN 900MG PREMIX 50 ML IV SCH ×3 (06:11→21:07)
[2017-04-17] MEDS: oxyCODONE/APAP 5/325 1 TAB TABLET PO PRN ×3 (06:11→21:07)
[2017-04-17 07:00] VITALS: BP 102/63
[2017-04-17 11:00] VITALS: BP 101/63
--- NOTE | 2017-04-17 11:37 | PDOC ---
PROGRESS NOTES Chief Complaint Chief Complaint Severe right foot cellulits with wound bullous area with possible underlying eschar nearly black Sepsis w/ Leukocytosis and tachycardia obesity tobaccoism History of Present Illness History of Present Illness First time I am seeing pt so hard for me to tell if the redness/swelling segura simproved Must be bec pt wants to go home LAst WBC 13 few days ago, has been on IV clinda since admit day NO diarrhea, no fevers WOund inspected, no new drainage, some old drainage, R foot moderately swollen, red up to the roth and warm to touch Unfortunetely no GS or cx on aspirate done during OR? BC neg or not done PLAN: Recheck CBC today add esr and bMP Advised 1 more day till we get cxs and rpt CBC and esr. If numbers are better and clinically not worse. might be able to dc yamilet on pO (pt wants to go home) Vitals Vitals Vital Signs Date Time Temp Pulse Resp B/P (MAP) Pulse Ox O2 Delivery O2 Flow Rate FiO2 04/17/17 11:00 97.6 104 14 101/63 (76) 97 Room Air 97.6 Physical Exam General: Alert, Oriented X3, Cooperative, No acute distress Heart: Regular rate, Normal S1, Normal S2 Lungs: Clear Abdomen: Normal bowel sounds, Soft, No tenderness Extremities: No clubbing, No cyanosis, Normal pulses Skin: No rashes, No breakdown, Other Review of Systems Review of Systems R leg swolen, red, erythematous, all else denies Comment Review of Relevant I have reviewed the following items pepito (where applicable) has been applied. Labs Microbiology 04/14/17 Blood Culture - Preliminary, Resulted NO GROWTH AFTER 3 DAYS Medications Current Medications Diphtheria/ Tetanus/Acell Pertussis (Boostrix) 0.5 ml ONCE ONCE VAX IM ; Start 04/13/17 at 23:50; Stop 04/13/17 at 23:51; Status DC Morphine Sulfate 4 mg 1X ONCE IV Last administered on 04/14/17 01:42; Start at 23:50; Stop 04/13/17 at 23:51; Status DC Nicotine (Nicoderm Cq 21mg) 1 patch PRN DAILY PRN TD SMOKING CESSATION Last administered on 04/16/17 14:58; Start 04/14/17 at 02:00 Oxycodone/ Acetaminophen (Percocet 5/325) 1 tab PRN Q6HRS PRN PO PAIN Last administered on 04/17/17 06:11; Start 04/14/17 at 02:00; Stop 04/17/17 at 09:21; Status DC Clindamycin Phosphate 50 ml @ 100 mls/hr Q8HRS IV Last administered on 06:11; Start 04/14/17 at 14:00 Clindamycin Phosphate 50 ml @ 100 mls/hr 1X ONCE IV Last administered on 09:31; Start 04/14/17 at 08:45; Stop 04/14/17 at 09:14; Status DC Nicotine Polacrilex (Nicorette Gum) 1 each PRN Q1HR PRN BC SMOKING CESSATION; Start 04/14/17 at 09:00 Morphine Sulfate 4 mg PRN Q2HR PRN IV PAIN Last administered on 04/16/17 18:34 ; Start 04/14/17 at 09:00 Sodium Chloride 1,000 ml @ 125 mls/hr 1X ONCE IV Last administered on 11:58; Start 04/14/17 at 09:00; Stop 04/14/17 at 16:59; Status DC Sodium Chloride 1,000 ml @ 1,000 mls/hr 1X ONCE IV Last administered on 09:08; Start 04/14/17 at 09:00; Stop 04/14/17 at 09:59; Status DC Calcium Carbonate/ Glycine (Tums) 500 mg PRN AFTMEALHC PRN PO INDIGESTION; Start 04/16/17 at 05:45 Oxycodone/ Acetaminophen (Percocet 5/325) 2 tab PRN Q6HRS PRN PO PAIN; Start at 09:30 Vitals/I & O Vital Sign - Last 24 Hours 04/16/17 04/16/17 04/16/17 04/16/17 14:56 14:59 19:00 19:04 Temp 97.8 97.7 97.8 97.7 Pulse 102 115 Resp 16 18 20 B/P (MAP) 114/70 (85) 112/75 (87) Pulse Ox 97 96 O2 Delivery Room Air Room Air Room Air Room Air 04/16/17 04/16/17 04/16/1717 20:28 21:38 22:38 23:00 Temp 97.5 97.5 Pulse 113 Resp 20 20 20 B/P (MAP) 124/74 (91) Pulse Ox 96 96 97 O2 Delivery Room Air Room Air Room Air Room Air 04/17/17 04/17/17 04/17/17 04/17/17 06:11 07:00 08:00 11:00 Temp 97.3 97.6 97.3 97.6 Pulse 101 104 Resp 20 14 14 B/P (MAP) 102/63 (76) 101/63 (76) Pulse Ox 97 95 97 O2 Delivery Room Air Room Air Room Air Room Air Intake and Output 04/16/17 04/16/17 04/17/17 15:00 23:00 07:00 Intake Total 520 ml Output Total 300 ml 325 ml 700 ml Balance -300 ml -325 ml -180 ml EDWIN MENDEZ MD Apr 17, 2017 11:37
[2017-04-17] MEDS: NICOTINE 21MG PATCH. TD PRN (14:03)
[2017-04-17 14:09] LABS: BASO # 0.1 x10^3/uL (0.0-0.2); BASO % 1 % (0-3); EOS % 5 % (0-3); HEMATOCRIT 42.6 % (39.0-53.0); HEMOGLOBIN 14.2 g/dL (13.0-17.5); LYMPH # 1.7 x10^3/uL (1.0-4.8); LYMPH % 18 % (24-48); MEAN CORPUSCULAR HEMOGLOBIN 29 pg (25-35); MEAN CORPUSCULAR HGB CONC 33 g/dL (31-37); MEAN CORPUSCULAR VOLUME 87 fL (79-100); MONO % 11 % (0-9); NEUT % 65 % (31-73); PLATELET COUNT 333 x10^3/uL (140-400); RED BLOOD COUNT 4.88 x10^6/uL (4.30-5.70); RED CELL DISTRIBUTION WIDTH 14.6 % (11.5-14.5); WHITE BLOOD COUNT 9.3 x10^3/uL (4.0-11.0)
[2017-04-17 14:18] LABS: GFR 86.6; POTASSIUM 3.8 mmol/L (3.5-5.1)
[2017-04-17 15:00] VITALS: BP 123/87
--- NOTE | 2017-04-17 15:19 | PDOC ---
PROGRESS NOTES Subjective Subjective Problems overnight:bandage was tight, now better post dressing change Objective Vital Signs Vital Signs Date Time Temp Pulse Resp B/P (MAP) Pulse Ox O2 Delivery O2 Flow Rate FiO2 04/17/17 14:04 Room Air 04/17/17 11:00 97.6 104 14 101/63 (76) 97 97.6 Physical Exam blistered area with surrounding cellulitis Labs Laboratory Tests Test 04/17/17 13:55 White Blood Count 9.3 x10^3/uL (4.0-11.0) Red Blood Count 4.88 x10^6/uL (4.30-5.70) Hemoglobin 14.2 g/dL (13.0-17.5) Hematocrit 42.6 % (39.0-53.0) Mean Corpuscular Volume 87 fL (79-100) Mean Corpuscular Hemoglobin 29 pg (25-35) Mean Corpuscular Hemoglobin Concent 33 g/dL (31-37) Red Cell Distribution Width 14.6 % (11.5-14.5) Platelet Count 333 x10^3/uL (140-400) Neutrophils (%) (Auto) 65 % (31-73) Lymphocytes (%) (Auto) 18 % (24-48) Monocytes (%) (Auto) 11 % (0-9) Eosinophils (%) (Auto) 5 % (0-3) Basophils (%) (Auto) 1 % (0-3) Neutrophils # (Auto) 6.1 x10^3uL (1.8-7.7) Lymphocytes # (Auto) 1.7 x10^3/uL (1.0-4.8) Monocytes # (Auto) 1.0 x10^3/uL (0.0-1.1) Eosinophils # (Auto) 0.5 x10^3/uL (0.0-0.7) Basophils # (Auto) 0.1 x10^3/uL (0.0-0.2) Sodium Level 138 mmol/L (136-145) Potassium Level 3.8 mmol/L (3.5-5.1) Chloride Level 102 mmol/L (98-107) Carbon Dioxide Level 29 mmol/L (21-32) Anion Gap 7 (6-14) Blood Urea Nitrogen 11 mg/dL (8-26) Creatinine 1.0 mg/dL (0.7-1.3) Estimated GFR (Cockcroft-Gault) 86.6 Glucose Level 104 mg/dL (70-99) Calcium Level 9.0 mg/dL (8.5-10.1) Laboratory Tests Test 04/17/17 13:55 White Blood Count 9.3 x10^3/uL (4.0-11.0) Red Blood Count 4.88 x10^6/uL (4.30-5.70) Hemoglobin 14.2 g/dL (13.0-17.5) Hematocrit 42.6 % (39.0-53.0) Mean Corpuscular Volume 87 fL (79-100) Mean Corpuscular Hemoglobin 29 pg (25-35) Mean Corpuscular Hemoglobin Concent 33 g/dL (31-37) Red Cell Distribution Width 14.6 % (11.5-14.5) Platelet Count 333 x10^3/uL (140-400) Neutrophils (%) (Auto) 65 % (31-73) Lymphocytes (%) (Auto) 18 % (24-48) Monocytes (%) (Auto) 11 % (0-9) Eosinophils (%) (Auto) 5 % (0-3) Basophils (%) (Auto) 1 % (0-3) Neutrophils # (Auto) 6.1 x10^3uL (1.8-7.7) Lymphocytes # (Auto) 1.7 x10^3/uL (1.0-4.8) Monocytes # (Auto) 1.0 x10^3/uL (0.0-1.1) Eosinophils # (Auto) 0.5 x10^3/uL (0.0-0.7) Basophils # (Auto) 0.1 x10^3/uL (0.0-0.2) Sodium Level 138 mmol/L (136-145) Potassium Level 3.8 mmol/L (3.5-5.1) Chloride Level 102 mmol/L (98-107) Carbon Dioxide Level 29 mmol/L (21-32) Anion Gap 7 (6-14) Blood Urea Nitrogen 11 mg/dL (8-26) Creatinine 1.0 mg/dL (0.7-1.3) Estimated GFR (Cockcroft-Gault) 86.6 Glucose Level 104 mg/dL (70-99) Calcium Level 9.0 mg/dL (8.5-10.1) Assessment Assessment POD# [], S/P [superficial debridement foot] Problems: Plan Plan of Care local wound care OK for home if antibiotics and wound care settled ADAM DOMINGO MD Apr 17, 2017 15:19
[2017-04-17 15:52] LABS: % EOS 5 % (0-5); PLT ESTIMATE ADEQUATE (ADEQUATE)
[2017-04-17 19:00] VITALS: BP 151/97
[2017-04-17 23:00] VITALS: BP 122/73
[2017-04-18 02:58] VITALS: BP 135/85
[2017-04-18] MEDS: CLINDAMYCIN 900MG PREMIX 50 ML IV SCH ×2 (06:04→14:24)
[2017-04-18 07:00] VITALS: BP 116/69
[2017-04-18] MEDS: NICOTINE 21MG PATCH. TD PRN (08:38)
[2017-04-18] MEDS: oxyCODONE/APAP 5/325 1 TAB TABLET PO PRN ×2 (08:39→14:26)
[2017-04-18 11:00] VITALS: BP 115/75
[2017-04-18 15:00] VITALS: BP 137/88
[2017-04-18] MEDS ORDERED: AMOX1TAB61 PO (16:42)
[2017-04-18] MEDS ORDERED: OXYC1TAB7 PO (16:42)
--- NOTE | 2017-04-19 23:57 | DS ---
DATE OF DISCHARGE: 04/18/2017 CHIEF COMPLAINT: Right foot cellulitis. HOSPITAL COURSE: The patient is a 31-year-old gentleman, who presented to the Emergency Room with right foot pain, worsening over a couple of days in an area where he had abrasion for some time. Pain was severe. In the Emergency Room, he was found with a small darkened bullous lesion. He was therefore admitted to the hospital for pain control as well as addressing of cellulitis. He was started on antibiotics with initial clindamycin IV. Ortho was consulted for de-ele of blister. Despite surrounding cellulitis, no deep track or abscess was noted. The wound was dressed, and with improvement of his symptoms, the patient was deemed appropriate for discharge on 04/18/2017. PHYSICAL EXAMINATION: VITAL SIGNS: Showed a blood pressure of 137/88, heart rate of 100, and respiratory rate of 20. He is afebrile. GENERAL: This is a 31-year-old morbidly obese gentleman, awake and alert, in no acute distress. HEENT: Shows no scleral icterus. NECK: Supple. LUNGS: Clear. HEART: Regular rate and rhythm. ABDOMEN: Positive bowel sounds. EXTREMITIES: Show left foot wrapped in gauze. No erythema noted beyond bandage. DISCHARGE DIAGNOSES: Foot cellulitis. DISCHARGE DISPOSITION: To home. DISCHARGE CONDITION: Improved. DISCHARGE MEDICATIONS: Please refer to MAR. DISCHARGE INSTRUCTIONS: The patient will follow up with wound clinic for dressing changes and will see his PCP in 1-2 weeks. COMPA MILAN MD DR: FAVIOLA/crista JOB#: [id number] / [id number]
== END 2017-04-18 17:00 | disposition home or self-care (01) | DRG 872 ==
LOC: ER 22:51 → 4 NORTH 23:39 → OBSVTOIN 04-15 12:30
PROVIDERS: ADMIT Internal Medicine; ATTEND Internal Medicine
DX: A41.9 Sepsis, unspecified organism (principal); L03.115 Cellulitis of right lower limb; E44.0 Moderate protein-calorie malnutrition; F17.210 Nicotine dependence, cigarettes, uncomplicated; E66.9 Obesity, unspecified; Z68.37 Body mass index [BMI] 37.0-37.9, adult; Z88.5 Allergy status to narcotic agent
CPT/HCPCS: 36415; 73718; 73721; 80048; 80053; 85007; 85027; 85651; 87040; 87641; G0378; G0379; G0481; J2270; J3490; J7030